=== PATIENT | female | born 1940 | race Caucasian/White ===

== ENCOUNTER → 2016-07-06 | Outpatient (CLI) | payer OTHER ==
[~2016-07-06] MED LIST: ADULT LOW STREN81 M2 PO; ALBUTEROL SULF8.5 GM IH; ASPIR-LOW81 M1 PO; ASPIRIN E.C.81 M1 PO; ASPIRIN EC325 MG PO; BACTRIM,SEPT1 TABLET PO; COLACE100 MG PO; COMBIVENT RESPIM4 GM IH; CRESTOR10 MG PO; CRESTOR20 MG PO; CYANOCOBALAM1000 MCG PO; ENDOCET 5-3251 EACH PO; FEOSOL325 MG PO; FERROUS SULFAT325 MG PO; FEXOFENADINE H180 MG PO; FORTAMET1000 M1 PO; GEMFIBROZIL600 MG PO; GLUCOPHAGE1000 MG PO; GLUCOPHAGE500 MG PO; IRON325 M1 PO; JANUVIA100 MG PO; JANUVIA25 M1 PO; KLONOPIN1 MG PO; LEVOTHROID,S0.075 MG PO; LEVOTHYROXINE75 MCG PO; LO-DOSE ASPIRIN81 M1 PO; LOMOTIL TABLET1 EACH PO; LOPID600 MG PO; LOPRESSOR25 MG PO; LOPRESSOR50 MG PO; Levothroid,Synthroid PO; Lopid PO; Lopressor PO; METOPROLOL SUCC25 MG PO; METOPROLOL SUCC50 MG PO; METOPROLOL TART25 MG PO; NEXIUM40 MG PO; NITROSTAT0.4 MG SL; PLAVIX75 MG PO; PRANDIN0.5 MG PO; PREDNISONE10 MG PO; PROMETHAZINE-C120 ML PO; RECLAST5 MG/100 M IV; SPIRIVA RESPIMAT4 GM IH; SPIRIVA1 INHALATI IH; SYNTHROID100 MCG PO; SYNTHROID125 MCG PO; TOPROL XL25 MG PO; TYLENOL EXTRA500 MG PO; VITAMIN D-32000 UNI1 PO; VITAMIN D31000 UNIT PO; WELCHOL625 MG PO; ZITHROMAX Z-PA250 MG PO
== END | disposition home or self-care (01) ==
LOC: OPR 06-29 09:00 → EDSTATUS 09:00 → OPR 09:00
PROC: 0BBK3ZX Excision of Right Lung, Percutaneous Approach, Diagnostic (ICD-10-PCS; principal; 2016-07-06)
DX: C34.31 Malignant neoplasm of lower lobe, right bronchus or lung (principal); J95.811 Postprocedural pneumothorax; Z87.891 Personal history of nicotine dependence; Z92.21 Personal history of antineoplastic chemotherapy; Z92.3 Personal history of irradiation; Z88.8 Allergy status to other drugs, medicaments and biological substances
CPT/HCPCS: 71010; 77012; 87102; 87116; 87206; 88305; 88341 TC; 88342 TC; J3010

== ENCOUNTER → 2017-06-08 | Outpatient (CLI) | payer OTHER ==
[~2017-06-08] MED LIST changes: +ACARBOSE25 MG PO; +ASPIRIN325 MG PO
== END | disposition home or self-care (01) ==
LOC: AMB 09:10
DX: L98.8 Other specified disorders of the skin and subcutaneous tissue (principal); Z53.9 Procedure and treatment not carried out, unspecified reason

== ENCOUNTER 2017-11-05 14:48 | Inpatient (IN) | payer OTHER ==
[~2017-11-05] VITALS: Ht 162.6 cm; Wt 63.9 kg
[~2017-11-05 14:48] MED LIST changes: -ASPIRIN325 MG PO
[2017-11-05 15:11] LABS: APPEARANCE CLOUDY ((CLEAR)); BILIRUBIN NEGATIVE; BLOOD LARGE; COLOR YELLOW ((YELLOW)); GLUCOSE (STRIP) 150; KETONES 20; LEUKOCYTES MODERATE; NITRITE NEGATIVE; PROTEIN (STRIP) 100; SPECIFIC GRAVITY 1.018 (1.000-1.030); UROBILINOGEN 0.2 MG/DL (0.2-1.0)
[2017-11-05 15:29] LABS: BACTERIA 2+ /HPF; EPITHELIAL CELLS 1+ /HPF; MUCUS NONE SEEN /LPF; RED BLOOD CELLS TNTC /HPF (0-5); UCUL ADDED? YES; WHITE BLOOD CELLS 20-30 /HPF (0-5)
[2017-11-05 15:33] LABS: HEMATOCRIT 42.9 % (36.0-46.0); HEMOGLOBIN 14.2 G/DL (11.9-15.5); MCH 27.5 PG (29.0-34.0); MCHC 33.1 G/DL (30.0-36.0); PLATELET COUNT 184 K/uL (156-360); RBC DIS.WIDTH-CV 15.4 % (11.8-14.6); RBC DIS.WIDTH-SD 46.2 % (39-53); RED BLOOD COUNT 5.17 M/uL (3.80-5.20); WHITE BLOOD COUNT 8.4 K/uL (4.1-10.2)
[2017-11-05 15:43] LABS: CHLORIDE 105 mEq/L (99-109); POTASSIUM 4.6 mEq/L (3.7-5.4)
[2017-11-05 15:44] LABS: SODIUM 140 mEq/L (136-147)
[2017-11-05 15:45] LABS: GLUCOSE 245 mg/dL (70-99)
[2017-11-05 15:49] LABS: CREATININE 1.1 mg/dL (0.6-1.3); GFR ESTIMATE (CALCULATED) 51 mL/min/
[2017-11-05 15:50] LABS: UREA NITROGEN (BUN) 17 mg/dL (9-23)
[2017-11-05 15:58] LABS: TROP-I INTERPRETATION NEGATIVE; TROPONIN-I 0.05 ng/mL (0.0-0.30)
[2017-11-05] MEDS ORDERED: GLUCOTROL5 MG PO (17:15)
[2017-11-05 22:13] VITALS: BP 187/80
[2017-11-05 22:30] VITALS: BP 175/79
[2017-11-05 22:36] LABS: HDL CHOLESTEROL 48 MG/DL (Desirable>=50); LDL CHOLESTEROL 18 mg/dL (Desirable<100); NON-HDL CHOLESTEROL 59 mg/dL (Desirable<160); TOTAL CHOLESTEROL 107 mg/dL (Desirable<200); TRIGLYCERIDES 206 MG/DL (Normal: <150)
[2017-11-05 23:10] LABS: HEMATOCRIT 38.7 % (36.0-46.0); HEMOGLOBIN 13.1 G/DL (11.9-15.5); MCH 27.8 PG (29.0-34.0); MCHC 33.9 G/DL (30.0-36.0); MCV 82.2 FL (83-99); PLATELET COUNT 163 K/uL (156-360); RBC DIS.WIDTH-CV 15.5 % (11.8-14.6); RBC DIS.WIDTH-SD 46.1 % (39-53); RED BLOOD COUNT 4.71 M/uL (3.80-5.20); WHITE BLOOD COUNT 8.2 K/uL (4.1-10.2)
[2017-11-06 00:26] VITALS: BP 143/77
[2017-11-06 00:50] LABS: TROP-I INTERPRETATION NEGATIVE; TROPONIN-I 0.08 ng/mL (0.0-0.30)
[2017-11-06 04:39] VITALS: BP 113/59
[2017-11-06 07:22] LABS: TROP-I INTERPRETATION NEGATIVE; TROPONIN-I 0.06 ng/mL (0.0-0.30)
[2017-11-06 08:48] VITALS: BP 127/67
[2017-11-06 12:31] LABS: TROP-I INTERPRETATION NEGATIVE; TROPONIN-I 0.05 ng/mL (0.0-0.30)
[2017-11-06 15:24] VITALS: BP 140/63
[2017-11-06 18:24] LABS: TROP-I INTERPRETATION NEGATIVE; TROPONIN-I 0.06 ng/mL (0.0-0.30)
[2017-11-06 20:00] VITALS: BP 187/93
[2017-11-07] VITALS (8 sets, daily range): BP systolic 119–187; BP diastolic 66–94
[2017-11-07 09:48] LABS: HEMOGLOBIN A1c (GLYCOHEMOGLOB) 7.6 % (Below 5.7)
[2017-11-08 03:57] VITALS: BP 104/60
[2017-11-08 12:03] VITALS: BP 137/67
[2017-11-08] MEDS ORDERED: ANTIVERT25 MG PO (15:40)
[2017-11-08] MEDS ORDERED: GABAPENTIN100 MG PO (15:43)
== END 2017-11-08 16:30 | disposition home or self-care (01) | DRG 149 ==
LOC: EME 14:48 → EDOF 20:59 → ENRESERV 21:01 → 4SOUTH 21:56
PROVIDERS: Emergency Medicine; Hospitalist
DX: H81.10 Benign paroxysmal vertigo, unspecified ear (principal); N39.0 Urinary tract infection, site not specified; I10 Essential (primary) hypertension; E11.9 Type 2 diabetes mellitus without complications; K21.9 Gastro-esophageal reflux disease without esophagitis; J44.9 Chronic obstructive pulmonary disease, unspecified; C34.2 Malignant neoplasm of middle lobe, bronchus or lung; Z95.5 Presence of coronary angioplasty implant and graft; I25.2 Old myocardial infarction; Z87.891 Personal history of nicotine dependence
CPT/HCPCS: 70450; 70551; 71046; 72125; 74176; 80048; 80061; 81003; 82948; 83036; 84484; 85027; 85651; 86140; 87086 GA; 93005; 93306; 97530 GP; 99281; 99285; G0378; J0696; J1644; J1815; J1885; J2405; J7030